=== PATIENT | female | born 1985 ===

== ENCOUNTER → 2016-12-31 | Outpatient (CLI) | payer MEDICARE ==
[2016-12-31 16:20] LABS: BILIRUBIN,URINE NEGATIVE (NEG); GLUCOSE,URINE NEGATIVE (NEG); NITRITE,URINE NEGATIVE (NEG); UROBILINOGEN,URINE 0.2 mg/dL (0.2 mg/dL)
[2016-12-31 16:24] LABS: BACTERIA,URINE MODERATE /HPF (0-FEW); PROTEIN,URINE 20 mg/dL (NEG-TRACE); SQUAMOUS EPITHELIAL CELL,UR FEW /LPF; WBC,URINE >40 /HPF (0-4)
== END | disposition home or self-care (01) ==
LOC: SPEC 15:53
PROVIDERS: ATTEND Urology
DX: N39.0 Urinary tract infection, site not specified (principal); M86.9 Osteomyelitis, unspecified; Z93.6 Other artificial openings of urinary tract status
CPT/HCPCS: 81001; 87086; 87186